=== PATIENT | female | born 1970 | race Two or more races ===

== ENCOUNTER 2021-09-06 08:00 | Inpatient (IN) | payer OTHER ==
[~2021-09-06] VITALS: Ht 167.6 cm; Wt 83.9 kg
[2021-09-06] MEDS ORDERED: FARXIGA10 MG PO (11:36)
[2021-09-06] MEDS ORDERED: ZESTRIL5 MG PO (11:36)
[2021-09-06] MEDS ORDERED: JANUMET 50-1,01 EACH PO (11:36)
[2021-09-06] MEDS ORDERED: ATORVASTATIN CA40 MG PO (11:37)
[2021-09-06] MEDS ORDERED: TOPROL XL25 M1 PO (11:37)
[2021-09-06] MEDS ORDERED: TAMOXIFEN CITRA20 MG PO (11:37)
[2021-09-12] MEDS ORDERED: SILVER SULFADIA50 GM (15:11)
[2021-09-12] MEDS ORDERED: PANTOPRAZOLE SO40 MG (15:11)
== END 2021-09-13 11:00 | disposition home or self-care (01) | DRG 743 ==
LOC: O/R 09-12 06:10 → SURH 09-12 08:00 → O/R 09-13 11:00
PROVIDERS: ADMIT Obstetrics & Gynecology Gynecologic Oncology; ATTEND Obstetrics & Gynecology Gynecologic Oncology
PROC: 0UT24ZZ Resection of Bilateral Ovaries, Percutaneous Endoscopic Approach (ICD-10-PCS; 2021-09-12)
PROC: 0UT74ZZ Resection of Bilateral Fallopian Tubes, Percutaneous Endoscopic Approach (ICD-10-PCS; 2021-09-12)
PROC: 0UT94ZZ Resection of Uterus, Percutaneous Endoscopic Approach (ICD-10-PCS; principal; 2021-09-12 20:00)
DX: N72 Inflammatory disease of cervix uteri (principal); N83.292 Other ovarian cyst, left side; N83.291 Other ovarian cyst, right side; N83.02 Follicular cyst of left ovary; N83.01 Follicular cyst of right ovary; N92.0 Excessive and frequent menstruation with regular cycle; C50.919 Malignant neoplasm of unspecified site of unspecified female breast; D26.0 Other benign neoplasm of cervix uteri; I11.9 Hypertensive heart disease without heart failure; E11.9 Type 2 diabetes mellitus without complications; E78.5 Hyperlipidemia, unspecified